=== PATIENT | female | born 1995 | race Caucasian/White ===

== ENCOUNTER 2016-10-09 14:22 | Emergency (ER) | payer MEDICAID ==
[2016-10-09] MEDS ORDERED: Sodium Chloride 0.9% 1,000 ML IV ONE ×2 (14:41→16:01)
[2016-10-09] MEDS ORDERED: Ondansetron 4 MG/2 ML SDV IV ONE (14:55)
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
[2016-10-09 15:17] LABS: CHLORIDE,CL 104 mmol/L (101-111); SODIUM,NA 138 mmol/L (135-145)
[2016-10-09 16:23] VITALS: BP 136/85
[2016-10-09] MEDS ORDERED: LORazepam 2 MG/ML Syringe IVPUSH ONE ×2 (16:58→17:21)
== END 2016-10-09 18:02 | disposition home or self-care (01) ==
LOC: DL.ED 14:22
DX: T50.901A Poisoning by unspecified drugs, medicaments and biological substances, accidental (unintentional), initial encounter (principal); R42 Dizziness and giddiness; F41.9 Anxiety disorder, unspecified; K21.9 Gastro-esophageal reflux disease without esophagitis; Z90.49 Acquired absence of other specified parts of digestive tract; Z88.8 Allergy status to other drugs, medicaments and biological substances; Z79.899 Other long term (current) drug therapy
CPT/HCPCS: 36415; 80053; 80305; 81001; 81025; 82150; 83605; 83690; 85025; 96361; 96374; 96375; 99284; G0480; J2060; J2405; J7030

== ENCOUNTER 2017-03-15 17:15 | Emergency (ER) | payer MEDICAID ==
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
[2017-03-15] MEDS ORDERED: Sodium Chloride 0.9% 10 ML Syringe FLUSH PRN (17:48)
[2017-03-15] MEDS ORDERED: Sodium Chloride 0.9% 1,000 ML IV ONE ×2 (17:49→19:51)
[2017-03-15 18:41] LABS: CHLORIDE,CL 102 mmol/L (101-111); SODIUM,NA 135 mmol/L (135-145)
[2017-03-15] MEDS ORDERED: methylPREDNISolone Sodium Succinate 125 MG/2 ML SDV IVPUSH ONE (19:53)
[2017-03-15] MEDS ORDERED: Albuterol/Ipratropium 3.0-0.5 MG/3 ML Neb Soln NEB ONE (19:53)
[2017-03-15] MEDS ORDERED: Ketorolac 30 MG/ML SDV IVPUSH ONE (20:13)
[2017-03-15] MEDS ORDERED: cefTRIAXone 1 GM Vial IVPUSH ONE (20:13)
[2017-03-15 20:24] VITALS: BP 119/66
[2017-03-15] MEDS ORDERED: Morphine 2 MG/ML Syringe IVPUSH ONE (20:56)
--- NOTE | 2017-03-25 18:37 | EKG ---
03/15/2017 - KRISH SHREMAN - This 12-lead EKG shows sinus tachycardia with a ventricular rate of 115. Normal axis and intervals. No acute ST-segment or T-wave changes. [facility] /[id number]
== END 2017-03-15 22:03 ==
LOC: DL.ED 17:15
DX: I40.0 Infective myocarditis (principal); F41.9 Anxiety disorder, unspecified; Z79.899 Other long term (current) drug therapy; Z88.8 Allergy status to other drugs, medicaments and biological substances; Z91.048 Other nonmedicinal substance allergy status
CPT/HCPCS: 36415; 71250; 80053; 81001; 81025; 82550; 82553; 83605; 84484; 85025; 85651; 86308; 87804; 93005; 94640; 96361; 96374; 96375; 99285; J0696; J1885; J2270; J2930; J7030; J7050

== ENCOUNTER 2017-05-04 20:24 | Emergency (ER) | payer MEDICAID ==
[2017-05-04 20:50] VITALS: BP 125/67
[2017-05-04 21:27] LABS: ANION GAP 12.3; CHLORIDE,CL 104 mmol/L (101-111); SODIUM,NA 137 mmol/L (135-145)
[2017-05-04] MEDS ORDERED: Famotidine 20 MG/2 ML SDV IVPUSH ONE (21:57)
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
--- NOTE | 2017-05-08 19:02 | EKG ---
05/04/2017 - KRISH SHERMAN I reviewed the EKG and agree with the machine's reading. [facility] /[id number]
== END 2017-05-04 23:23 | disposition home or self-care (01) ==
LOC: DL.ED 20:24
DX: R07.89 Other chest pain (principal); Z88.8 Allergy status to other drugs, medicaments and biological substances; Z79.899 Other long term (current) drug therapy
CPT/HCPCS: 36415; 71045; 80053; 82553; 83605; 84484; 85025; 85379; 86140; 93005; 96374; 99285; S0028

== ENCOUNTER 2017-06-27 20:42 | Emergency (ER) | payer MEDICAID ==
[2017-06-27] MEDS ORDERED: LORazepam 0.5 MG Tab PO ONE (20:59)
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
[2017-06-27 21:40] LABS: CHLORIDE,CL 106 mmol/L (101-111); SODIUM,NA 138 mmol/L (135-145)
[2017-06-27] MEDS ORDERED: Ketorolac 30 MG/ML SDV IVPUSH ONE (22:43)
[2017-06-27] MEDS ORDERED: Ketorolac 30 MG/ML SDV IM ONE (22:58)
[2017-06-27 23:27] VITALS: BP 126/64
== END 2017-06-27 23:21 | disposition home or self-care (01) ==
LOC: DL.ED 20:42
DX: R07.89 Other chest pain (principal); Z88.8 Allergy status to other drugs, medicaments and biological substances; Z91.048 Other nonmedicinal substance allergy status; Z79.899 Other long term (current) drug therapy; Z79.82 Long term (current) use of aspirin
CPT/HCPCS: 36415; 80053; 80305; 81001; 81025; 82550; 82553; 84484; 85025; 86140; 93005; 96372; 99284; A9270; J1885

== ENCOUNTER 2017-08-03 17:07 | Emergency (ER) | payer MEDICAID ==
[2017-08-03] MEDS ORDERED: LORazepam 0.5 MG Tab PO ONE (18:17)
[2017-08-03 18:25] LABS: CHLORIDE,CL 106 mmol/L (101-111); SODIUM,NA 137 mmol/L (135-145)
[2017-08-03 18:47] VITALS: BP 119/66
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
--- NOTE | 2017-08-07 07:19 | EKG ---
08/03/2017- KRISH SHERMAN - FINDINGS: Normal sinus rhythm with heart rate of 87, DC interval of 132. No significant ST elevation or ST depression noted on this 12-lead EKG except for nonspecific ST-T wave changes noted on lead V1 with a T-wave inversion. [facility] /[id number]
== END 2017-08-03 19:12 | disposition home or self-care (01) ==
LOC: DL.ED 17:07
DX: F41.9 Anxiety disorder, unspecified (principal); R07.89 Other chest pain; Z88.8 Allergy status to other drugs, medicaments and biological substances; Z79.899 Other long term (current) drug therapy; Z79.82 Long term (current) use of aspirin
CPT/HCPCS: 36415; 71046; 80053; 80305; 81001; 81025; 84484; 85025; 85379; 86140; 93005; 99284; A9270

== ENCOUNTER 2017-08-04 21:50 | Emergency (ER) | payer MEDICAID ==
[2017-08-04] MEDS ORDERED: Sodium Chloride 0.9% 1,000 ML IV ONE (22:34)
[2017-08-04] MEDS ORDERED: LORazepam 2 MG/ML Syringe IVPUSH ONE (22:34)
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
[2017-08-04 22:49] LABS: CHLORIDE,CL 107 mmol/L (101-111); SODIUM,NA 137 mmol/L (135-145)
[2017-08-04] MEDS ORDERED: Ondansetron 4 MG/2 ML SDV IV ONE (23:17)
[2017-08-04] MEDS ORDERED: Ketorolac 30 MG/ML SDV IVPUSH ONE (23:19)
[2017-08-05 00:47] VITALS: BP 110/57
[2017-08-05] MEDS ORDERED: LORazepam 2 MG/ML Syringe IVPUSH ONE (00:47)
--- NOTE | 2017-08-06 12:54 | EKG ---
08/04/2017 - KRISH SHERMAN - FINDINGS: A 12-lead EKG shows normal sinus rhythm with heart rate of 86, no significant ST elevation or ST depression noted on this 12-lead EKG. [facility] /[id number]
== END 2017-08-05 01:04 | disposition home or self-care (01) ==
LOC: DL.ED 21:50
DX: R07.89 Other chest pain (principal); F41.9 Anxiety disorder, unspecified; Z88.8 Allergy status to other drugs, medicaments and biological substances; Z91.048 Other nonmedicinal substance allergy status; Z79.899 Other long term (current) drug therapy
CPT/HCPCS: 36415; 80053; 84484; 85025; 85379; 86140; 93005; 96361; 96374; 96375; 96376; 99285; J1885; J2060; J2405; J7030

== ENCOUNTER 2017-08-11 04:43 | Emergency (ER) | payer MEDICAID ==
[2017-08-11] MEDS ORDERED: Ondansetron 4 MG/2 ML SDV ONE (04:55)
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
[2017-08-11] MEDS ORDERED: Ondansetron 4 MG/2 ML SDV IV ONE (04:58)
[2017-08-11 05:22] LABS: CHLORIDE,CL 107 mmol/L (101-111); SODIUM,NA 137 mmol/L (135-145)
[2017-08-11 05:56] VITALS: BP 108/48
--- NOTE | 2017-08-13 07:41 | EKG ---
08/11/2017- KRISH SHERMAN - FINDINGS: EKG per my reading, shows sinus rhythm at the rate of 81. [facility] /[id number]
== END 2017-08-11 06:28 | disposition home or self-care (01) ==
LOC: DL.ED 04:43
DX: F43.0 Acute stress reaction (principal); Z88.8 Allergy status to other drugs, medicaments and biological substances; Z79.899 Other long term (current) drug therapy; Z79.82 Long term (current) use of aspirin
CPT/HCPCS: 36415; 80053; 84484; 85025; 93005; 99285; J2405

== ENCOUNTER 2017-08-19 21:32 | Emergency (ER) | payer MEDICAID ==
[2017-08-19] MEDS ORDERED: LORazepam 0.5 MG Tab PO ONE (21:33)
[2017-08-19 22:49] LABS: ANION GAP 13.8; CHLORIDE,CL 105 mmol/L (101-111); SODIUM,NA 139 mmol/L (135-145)
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
[2017-08-20] MEDS ORDERED: LORazepam 0.5 MG Tab ONE (00:23)
[2017-08-20 00:31] VITALS: BP 110/69
--- NOTE | 2017-08-21 19:29 | EKG ---
08/19/2017 - KRISH SHERMAN - TIME: 9:46 p.m. FINDINGS: EKG shows a heart rate of 82 beats per minute. Normal sinus rhythm. [facility] /[id number]
== END 2017-08-20 00:28 | disposition home or self-care (01) ==
LOC: DL.ED 21:32
DX: R07.9 Chest pain, unspecified (principal); F41.9 Anxiety disorder, unspecified; Z91.048 Other nonmedicinal substance allergy status; Z79.899 Other long term (current) drug therapy
CPT/HCPCS: 36415; 80053; 80305; 81001; 82150; 84484; 84703; 85025; 86140; 99283; A9270

== ENCOUNTER 2017-08-20 22:49 | Emergency (ER) | payer MEDICAID | END 2017-08-20 23:08 | disposition left against medical advice (07) | LOC: DL.ED 22:49 | DX: R07.9 Chest pain, unspecified (principal); F41.9 Anxiety disorder, unspecified; Z91.048 Other nonmedicinal substance allergy status; Z79.899 Other long term (current) drug therapy; Z53.21 Procedure and treatment not carried out due to patient leaving prior to being seen by health care provider | CPT/HCPCS: 36415; 80053; 80305; 81001; 82150; 84484; 84703; 85025; 86140; 99283; A9270 ==

== ENCOUNTER 2017-10-03 03:43 | Emergency (ER) | payer MEDICAID ==
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
[2017-10-03 04:13] VITALS: BP 112/76
== END 2017-10-03 04:59 | disposition home or self-care (01) ==
LOC: DL.ED 03:43
DX: S60.221A Contusion of right hand, initial encounter (principal); S60.211A Contusion of right wrist, initial encounter; Z88.8 Allergy status to other drugs, medicaments and biological substances; Z79.82 Long term (current) use of aspirin; Z79.899 Other long term (current) drug therapy; W22.8XXA Striking against or struck by other objects, initial encounter
CPT/HCPCS: 73090-RT; 73130-RT; 99283

== ENCOUNTER 2018-05-24 15:33 | Emergency (ER) | payer MEDICAID ==
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
[2018-05-24 16:31] VITALS: BP 119/77
== END 2018-05-24 16:18 | disposition home or self-care (01) ==
LOC: DL.ED 15:33
DX: S39.92XA Unspecified injury of lower back, initial encounter (principal); F41.9 Anxiety disorder, unspecified; Z79.82 Long term (current) use of aspirin; Z79.899 Other long term (current) drug therapy; W01.0XXA Fall on same level from slipping, tripping and stumbling without subsequent striking against object, initial encounter
CPT/HCPCS: 72100; 72220; 99283-25

== ENCOUNTER 2018-05-25 00:55 | Emergency (ER) | payer MEDICAID ==
[2018-05-25] MEDS ORDERED: Ketorolac 30 MG/ML SDV ONE (04:21)
== END 2018-05-25 04:46 | disposition home or self-care (01) ==
LOC: DL.ED 00:55
DX: S39.92XA Unspecified injury of lower back, initial encounter (principal); W19.XXXA Unspecified fall, initial encounter
CPT/HCPCS: 96372; 99283

== ENCOUNTER 2018-09-11 09:03 | Day surgery (SDC) | payer MEDICAID ==
[~2018-09-11 09:03] MED LIST: Lactated Ringers 1,000 ML IV SCH; Sodium Chloride 0.9% 10 ML Syringe FLUSH PRN; ceFAZolin 2 GM in Premix Bag 1 BAG IV ONE
[2018-09-11] MEDS ORDERED: Ketorolac 30 MG/ML SDV IVPUSH ONE (09:04)
[2018-09-11] MEDS ORDERED: fentaNYL 100 MCG/2 ML SDV IV ONE (09:04)
[2018-09-11] MEDS ORDERED: Midazolam 1 MG/ML 2 ML SDV IV ONE (09:04)
[2018-09-11] MEDS ORDERED: Dexamethasone 4 MG/ML SDV IV ONE (09:04)
[2018-09-11] MEDS ORDERED: Propofol 200 MG/20 ML SDV IV ONE (09:04)
[2018-09-11] MEDS ORDERED: Ondansetron 4 MG/2 ML SDV IV ONE (09:04)
[2018-09-11] MEDS ORDERED: Albuterol/Ipratropium 3.0-0.5 MG/3 ML Neb Soln NEB ONE (11:43)
[2018-09-11] MEDS ORDERED: Lidocaine 1% 30 ML SDV ONE (12:08)
[2018-09-11] MEDS ORDERED: Bupivacaine 0.5% 30 ML SDV ONE (12:08)
[2018-09-11] MEDS ORDERED: Lidocaine 1% 30 ML SDV INJECT ONE (13:10)
[2018-09-11] MEDS ORDERED: Bupivacaine 0.5% 30 ML SDV INJECT ONE (13:10)
--- NOTE | 2018-09-11 15:44 | PCM.OPNOTE ---
- General Post-Op/Procedure Note Date of Surgery/Procedure: 09/11/18 Operative Procedure(s): left foot 1st metatarsal osteotomy, accessory navicular excision with detachment and reattachment of PT tendon Pre Op Diagnosis: left foot 1st MTPJ pain with bunion, painful accessory navicular bone Post-Op Diagnosis: liliam Anesthesia Technique: General LMA, Local Primary Surgeon: Kacie Coulter Anesthesia Provider: Jhonatan Blanco EBL in mLs: 5 Complications: none Condition: Good Free Text/Narrative:: Pt tolerated procedure well and was transported to recovery with vascular status intact to left foot. 5.0 daisy bone anchor placed in navicular. Well padded L&U splint applied with foot in inversion.
[2018-09-11] MEDS ORDERED: oxyCODONE 5 MG Tab PO PRN (16:00)
[2018-09-11 18:51] VITALS: BP 109/67
--- NOTE | 2018-09-12 17:22 | OR ---
DATE: 09/11/2018 PREOPERATIVE DIAGNOSES: 1. Left foot painful bunion/hallux abductovalgus with joint inflammation. 2. Left foot painful accessory navicular bone. POSTOPERATIVE DIAGNOSES: 1. Left foot painful bunion/hallux abductovalgus with joint inflammation. 2. Left foot painful accessory navicular bone. PROCEDURE PERFORMED: 1. Left foot first metatarsal osteotomy/bunionectomy. 2. Left foot accessory navicular excision with detachment and reattachment of the posterior tibial tendon. ANESTHESIA: General LMA with local block of 20 mL of 1:1 mixture of 1% lidocaine plain and 0.5% Marcaine plain. TOURNIQUET TIME: 112 minutes, pneumatic ankle tourniquet. ESTIMATED BLOOD LOSS: Minimal. SPECIMENS: None. COMPLICATIONS: None. INDICATIONS: Fransico is a 22-year-old female who presents for left foot pain. She has history of a Lapidus bunionectomy and Vignesh performed by a different bobbin dumper in 2012. I removed her hardware after that. She states that she is having a lot of pain to the big toe joint, it looks like her bunion is growing back to that area and it is causing a lot of pain. She states that that toe will get stuck downwards and cause her to trip, this causes a lot of issues and it gets very painful when it gets stuck. This has been going on for over a year now. She also gets pain in the medial midfoot where there is a bony prominence, this does shoot up her leg. She states that it feels like her foot is loose and needs to be tightened. 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 X-rays of the left foot reveal fusion of the first metatarsocuneiform joint and the second metatarsal base. Intermetatarsal angle of approximately 10 degrees with a tibial sesamoid position of 5, hallux abductus angle of 30 degrees. Large accessory navicular bone present. Some mild spurring around the first MTPJ. The patient voiced good understanding of the proposed procedure and possible complications, and elects to have surgery at this time. DESCRIPTION OF PROCEDURE: The patient was taken to the operating room, lying in the supine position. After adequate anesthesia induction as described above, the left foot was prepped and draped in a usual sterile fashion. A pneumatic ankle tourniquet was inflated to 225 mmHg. Attention was then directed to the dorsal aspect of the first metatarsophalangeal joint where an approximately 5 cm linear incision was made. Sharp and blunt dissections were performed down to the level of the joint capsule with care to gently retract all neurovascular bundles. Blunt dissection was performed down to the level of the first interspace to the sesamoid. The adductor tendon was released from the sesamoid. An inverted capsulotomy was made at the first metatarsophalangeal joint and the capsule was reflected to expose the distal first metatarsal. The joint was inspected at this time and it was noted to be fairly healthy in appearance, there was only 1 small defect at the medial aspect and this was drilled with a 0.054 K-wire. The rest of the cartilage appeared healthy, however, it was deviated laterally. There was some hypertrophy of the medial eminence as well, which was removed with a sagittal saw. An osteotomy was then made with the plantar osteotomy parallel to the weightbearing surface, starting at a 0.1 cm proximal to the articular cartilage of the metatarsal head. A horizontal osteotomy was then made perpendicular to the plantar osteotomy and then a third osteotomy was made to remove an approximately 2 mm wedge of bone with the base medial and apex lateral. The capital fragment was then shifted laterally approximately 4 mm and impacted on the first metatarsal shaft to bring that joint surface in a rectus straight alignment. A K-wire from the 3.0 Brien cannulated screw set was placed as temporary fixation. Fluoroscopy was used to verify proper positioning of the fixation as well as good positioning of the joint surface. A 3.0 cannulated [place] screw was placed and it was not in the joint or in the metatarsal head sticking out, this was inspected and it looked to be a good length. The osteotomy site was noted to be stable with varus, valgus, and axial forces applied. A capsulorrhaphy was performed at the medial aspect and the area was then irrigated with copious amounts of sterile saline. Deep closure was completed with 3-0 Vicryl and skin closure was completed with 4- 0 nylon. The hallux was noted to be in a straight rectus alignment with fluid range of motion, there was no clicking and catching, and I was able to put it in full range of motion without any issues. Our attention was then directed to the medial midfoot where the accessory navicular bone was marked out. A linear incision was made overlying the prominent navicular approximately 5 cm in length. Sharp and blunt dissections were performed down to the level of the periosteum of the navicular bone. A capsulotomy was made and the accessory navicular was identified, and the posterior tibial tendon insertion site at this area was freed from the accessory navicular. A sagittal saw was used to resect the prominent portion of the enlarged navicular. A bone rasp was used to smooth all rough bony edges. Fluoroscopy was used to verify adequate resection of the navicular. A 5.0 [place] bone anchor was then placed into the medial aspect of the navicular. The area was irrigated with copious amounts of sterile saline and the posterior tibial tendon was then reattached to the navicular in this area with the foot in inversion as to tighten the tendon. Deep closure was completed with 3-0 Vicryl and skin closure was completed with 4-0 nylon. The area was dressed with Xeroform to the incision site, fluffs, Webril, and a well- padded L and U splint with the foot in slight inversion. The patient tolerated the procedure and anesthesia well, and left the operating room for recovery with vital signs stable and in good condition with vascular status intact to the left foot. The patient was then discharged home when she met all hospital discharge requirements. [facility] /[id number]
== END 2018-09-11 17:28 ==
LOC: DL.SDS 09:03
PROVIDERS: ATTEND Podiatrist
DX: M21.612 Bunion of left foot (principal); M20.12 Hallux valgus (acquired), left foot; M19.079 Primary osteoarthritis, unspecified ankle and foot; I07.1 Rheumatic tricuspid insufficiency; K21.9 Gastro-esophageal reflux disease without esophagitis; K58.9 Irritable bowel syndrome, unspecified; F41.9 Anxiety disorder, unspecified; F41.1 Generalized anxiety disorder; J90 Pleural effusion, not elsewhere classified; M79.7 Fibromyalgia; Z98.1 Arthrodesis status; Z88.3 Allergy status to other anti-infective agents; Z91.048 Other nonmedicinal substance allergy status; Z79.899 Other long term (current) drug therapy
CPT/HCPCS: 81025; 94640; A4217; C1713; J0690; J1100; J1885; J2001; J2250; J2405; J2704; J3010; J3490; J7120; J7620-GY

== ENCOUNTER 2018-11-27 05:33 | Day surgery (SDC) | payer MEDICAID ==
[2018-11-27] MEDS ORDERED: Midazolam 1 MG/ML 2 ML SDV IV ONE ×7 (05:34→06:32)
[2018-11-27] MEDS ORDERED: fentaNYL 100 MCG/2 ML SDV IV ONE ×6 (05:34→06:36)
[2018-11-27] MEDS ORDERED: fentaNYL 100 MCG/2 ML SDV ONE (06:14)
[2018-11-27] MEDS ORDERED: Midazolam 1 MG/ML 2 ML SDV ONE (06:14)
--- NOTE | 2018-11-27 07:22 | OR ---
DATE: 11/27/2018 PROCEDURE: Total colonoscopy. INSTRUMENT USED: PCF-H190DL Olympus video colonoscope. PREMEDICATIONS: Fentanyl 200 mcg intravenous, Versed 4 mg intravenous. The procedure was done under pulse oximetry, BP recording, and desk monitor. INDICATION: The patient with persistent lower abdominal pain and rectal bleeding, unexplained. Colonoscopic examination is done for detection of any polypoid lesions and removal, endoscopic hemostasis therapy if needed. DESCRIPTION OF PROCEDURE: Initial rectal exam was unremarkable. Rigid anoscopy was normal. The colonoscope was passed with ease up to the ileocecal area. Photographs were taken of the normal-appearing cecum identified by double-bulged ileocecal folds. No bleeding was noted from any of the visualized areas at the commencement of the examination. The bowel preparation was found to be adequate, [place] scale 2 in all the regions. No stricture. No vascular ectasia. No large isolated ulcerations seen. No evidence of diffuse inflammatory bowel disease in the form of friability, contact bleeding, or ulcerations. No polyp or tumor mass identified. Probing the proximal sides of folds and flexures, using adequate distention and clearing of the stool material, withdrawal of the scope was made, cecum to rectum time over 6 minutes. No bleeding was noted from any of the visualized areas at the completion of examination. IMPRESSION: Normal study. The patient tolerated the procedure well. [facility] /[id number]
[2018-11-27] MEDS ORDERED: Sodium Chloride 0.9% 10 ML Syringe FLUSH PRN (07:46)
[2018-11-27] MEDS ORDERED: Dextrose 5%-0.45% NaCl 1,000 ML IV SCH (08:00)
[2018-11-27 09:33] VITALS: BP 105/60
== END 2018-11-27 08:50 | disposition home or self-care (01) ==
LOC: DL.ENDO 05:33
PROVIDERS: ATTEND Internal Medicine Gastroenterology
DX: R10.30 Lower abdominal pain, unspecified (principal); K62.5 Hemorrhage of anus and rectum; F41.1 Generalized anxiety disorder; F32.9 Major depressive disorder, single episode, unspecified; K58.9 Irritable bowel syndrome, unspecified
CPT/HCPCS: 45378; J2250; J3010; J7042; G0121

== ENCOUNTER 2019-02-04 01:31 | Emergency (ER) | payer MEDICAID ==
--- NOTE | 2019-02-04 02:05 | EDM.PDOC ---
ED HPI GENERAL MEDICAL PROBLEM - General Chief Complaint: Lower Extremity Injury/Pain Stated Complaint: TRIPPED AND HURT TOE Time Seen by Provider: 02/04/19 01:48 Source of Information: Reports: Patient History Limitations: Reports: No Limitations - History of Present Illness INITIAL COMMENTS - FREE TEXT/NARRATIVE: This 23 yo female patient reports to the ED with left 1st and 2nd toe pain. The patient reports she tripped at about 0030 this morning and hit her toe. The patient reports she heard a "pop" during the incident. The patient reports increased pain and decreased mobility since the incident. The patient reports she took Tylenol, ibuprofen and 1/2 of an Oxycodone prior to coming to the ED with no symptom relief. The patient reports she has had multiple surgeries on the left great toe in the past and has had chronic pain in her left foot. 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: Reports: Acetaminophen, NSAIDS, Other Medication(s) (1/2 of a 10 mg Oxycodone) Left Foot Pain Score (Numeric/FACES): 8 - Related Data Allergies Allergy/AdvReac Type Severity Reaction Status Date / Time chlorhexidine Allergy Rash Verified 02/04/19 01:39 TAPE Allergy Unknown Rash Uncoded 02/04/19 01:39 Home Meds: Home Meds Escitalopram [Lexapro] 10 mg PO DAILY 10/03/17 [History] Acetaminophen 500 - 1,000 mg PO Q6H PRN 09/09/18 [History] Clindamycin Phosphate [Cleocin T] 1 applic TOP ASDIRECTED 09/09/18 [History] LORazepam 0.5 mg PO Q6H PRN 09/09/18 [History] Ondansetron [Zofran ODT] 4 mg PO DAILY 09/09/18 [History] Polyvinyl Alcohol [Artificial Tears] 1 drop EYEBOTH QID PRN 09/09/18 [History] Tretinoin [Retin-A] 1 applic TOP ASDIRECTED PRN 09/09/18 [History] lamoTRIgine [Lamotrigine] 100 mg PO DAILY 09/09/18 [History] Biotin 1 mg PO DAILY PRN 09/10/18 [History] Norethindrone-E.estradiol-Iron [Junel Fe 1 MG-20 MCG] 1 each PO DAILY 11/21/18 [ History] oxyCODONE ER [OxyCONTIN] 10 mg PO BID 11/25/18 [History] Cholecalciferol (Vitamin D3) [Vitamin D] 50,000 unit PO ASDIRECTED 02/04/19 [ History] Magnesium Citrate 100 mg PO 02/04/19 [History] Past Medical History HEENT History: Reports: Impaired Vision Other HEENT History: wear glasses Cardiovascular History: Reports: Other (See Below) Other Cardiovascular History: SYNCOPE ETIOLOGY UNKNOWN, myocarditis 2016, fatty spot on Atrium, leaky heart valves Respiratory History: Reports: Asthma, Bronchitis, Recurrent Gastrointestinal History: Reports: Chronic Constipation, GERD, Irritable Bowel Syndrome Other Gastrointestinal History: LACTOSE INTOLERANCE Genitourinary History: Reports: Urinary Incontinence SAP MOBILITY ARCHITECT History: Reports: Endometriosis Other SAP MOBILITY ARCHITECT History: LMP ended This past Saturday Musculoskeletal History: Reports: Back Pain, Chronic, Fibromyalgia Other Musculoskeletal History: BUNION LEFT FOOT; TIETZE'S DISEASE; DDD THORACOLUMBAR; MYOFASCIAL PAIN; CHRONIC BACK PAIN; MUSCULE SPASM OF THE BACK; NECK PAIN HX OF TORTICOLLIS; 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 Thoracic outlet syndrom; had first ribs removed. CHRONIC FATIGUE SYNDROME Psychiatric History: Reports: Anxiety, Panic Attack Endocrine/Metabolic History: Reports: None Hematologic History: Reports: B12 Deficiency, Iron Deficiency Immunologic History: Reports: None Oncologic (Cancer) History: Reports: None Dermatologic History: Reports: Cellulitis - Infectious Disease History Infectious Disease History: Reports: None - Past Surgical History Head Surgeries/Procedures: Reports: None HEENT Surgical History: Reports: Oral Surgery Other HEENT Surgeries/Procedures: wisdom teeth removed in 2014 Cardiovascular Surgical History: Reports: Other (See Below) Other Cardiovascular Surgeries/Procedures: pulmonary function test. echocardiogram Respiratory Surgical History: Reports: None GI Surgical History: Reports: Cholecystectomy, EGD Female Surgical History: Reports: Endometrial Ablation, Other (See Below) Other Female Surgeries/Procedures: Endometriosis ablation Jul 30 2018 Other Neurological Surgeries/Procedures: INJECTION TO BACK Musculoskeletal Surgical History: Reports: Shoulder Surgery, Other (See Below) Other Musculoskeletal Surgeries/Procedures:: knee and foot surgery, 1 rib removed from right and left side to increase blood flow. Oncologic Surgical History: Reports: None Social & Family History - Family History Family Medical History: Noncontributory HEENT: - Tobacco Use Smoking Status *Q: Never Smoker - Caffeine Use Caffeine Use: Reports: Coffee Other Caffeine Use: 1 cups a week Caffeine Use Comment: Intermittent coffee, not even every day. - Recreational Drug Use Recreational Drug Use: Yes Other Recreational Drug Type: Intermittent marijuana use. - Living Situation & Occupation Living situation: Reports: with Family Review of Systems - Review of Systems Review Of Systems: Comprehensive ROS is negative, except as noted in HPI. ED EXAM, GENERAL - Physical Exam Exam: See Below Exam Limited By: No Limitations General Appearance: Alert, WD/WN, Moderate Distress Eye Exam: Bilateral Eye: EOMI, Normal Inspection, PERRL Ears: Normal External Exam, Normal Canal, Hearing Grossly Normal, Normal TMs Nose: Normal Inspection, Normal Mucosa, No Blood Throat/Mouth: Normal Inspection, Normal Lips, Normal Teeth, Normal Gums, Normal Oropharynx, Normal Voice, No Airway Compromise Head: Atraumatic, Normocephalic Neck: Normal Inspection, Supple, Non-Tender, Full Range of Motion Respiratory/Chest: No Respiratory Distress, Lungs Clear, Normal Breath Sounds, No Accessory Muscle Use, Chest Non-Tender Cardiovascular: Normal Peripheral Pulses, Regular Rate, Rhythm, No Edema, No Gallop, No JVD, No Murmur, No Rub (Female) Exam: Deferred Rectal (Female) Exam: Deferred Extremities: Leg Pain (left foot and toe pain. The pain is reported over the 1st and 2nd toes at the MCP joint. The patient has a surgical scar to the area. The patient reports she has a screw in the area from previous surgeries. ) Neurological: Alert, Oriented, Abnormal Gait (due to pain in her left foot) Psychiatric: Normal Affect, Normal Mood Skin Exam: Warm, Dry, Intact, Normal Color, No Rash Lymphatic: No Adenopathy Course - Vital Signs Last Recorded V/S: Last Vital Signs Temp 36.6 C 02/04/19 01:39 Pulse 108 H 02/04/19 01:39 Resp 22 H 02/04/19 01:39 BP 115/63 02/04/19 01:39 Pulse Ox 100 02/04/19 01:39 - Orders/Labs/Meds Orders: Active Orders 24 hr Category Date Time Status Foot Comp Min 3V Lt [CR] Urgent Exams 02/04/19 01:53 Taken Departure - Departure Time of Disposition: 03:26 Disposition: Home, Self-Care 01 Condition: Fair Clinical Impression: Foot contusion Qualifiers: Encounter type: initial encounter Laterality: left Qualified Code(s): S90.32XA - Contusion of left foot, initial encounter - Discharge Information Instructions: Foot Contusion, [id number] Forms: ED Department Discharge Care Plan Goals: The patient was advised of the examination and x-ray results during the visit. An LAWANDA wrap was applied to the patient's left foot for compression during the visit in the ED. The patient was encouraged to rest, ice and elevate the extremity. If the patient has any additional symptoms or concerns, the patient should either return to the emergency department or visit the emergency department. - My Orders Last 24 Hours: My Active Orders 02/04/19 01:53 Foot Comp Min 3V Lt [CR] Urgent - Assessment/Plan Last 24 Hours: My Active Orders 02/04/19 01:53 Foot Comp Min 3V Lt [CR] Urgent
[2019-02-04 03:45] VITALS: BP 106/63; PULSE 84
== END 2019-02-04 03:38 | disposition home or self-care (01) ==
LOC: DL.ED 01:31
DX: S90.112A Contusion of left great toe without damage to nail, initial encounter (principal); S90.122A Contusion of left lesser toe(s) without damage to nail, initial encounter; M79.675 Pain in left toe(s); J45.909 Unspecified asthma, uncomplicated; K21.9 Gastro-esophageal reflux disease without esophagitis; F41.9 Anxiety disorder, unspecified; Z79.899 Other long term (current) drug therapy; W22.8XXA Striking against or struck by other objects, initial encounter
CPT/HCPCS: 73630-LT; 99283-25

== ENCOUNTER 2019-03-05 09:02 | Day surgery (SDC) | payer MEDICAID ==
[2019-03-05] MEDS ORDERED: Ketorolac 30 MG/ML SDV IVPUSH ONE (09:03)
[2019-03-05] MEDS ORDERED: Midazolam 1 MG/ML 2 ML SDV IV ONE (09:03)
[2019-03-05] MEDS ORDERED: Ondansetron 4 MG/2 ML SDV IV ONE (09:03)
[2019-03-05] MEDS ORDERED: Propofol 200 MG/20 ML SDV IV ONE (09:03)
[2019-03-05] MEDS ORDERED: Bupivacaine 0.5% 30 ML SDV INJECT ONE (09:03)
[2019-03-05] MEDS ORDERED: fentaNYL 100 MCG/2 ML SDV IV ONE (09:03)
[2019-03-05] MEDS ORDERED: Dexamethasone 4 MG/ML SDV IV ONE (09:03)
[2019-03-05] MEDS ORDERED: Lidocaine 1% 30 ML SDV INJECT ONE (09:03)
[2019-03-05] MEDS ORDERED: Lidocaine 1% 30 ML SDV ONE (10:11)
[2019-03-05] MEDS ORDERED: Bupivacaine 0.5% 30 ML SDV ONE (10:11)
[2019-03-05] MEDS ORDERED: Propofol 200 MG/20 ML SDV ONE (12:20)
[2019-03-05] MEDS ORDERED: oxyCODONE 5 MG Tab PO PRN (13:06)
--- NOTE | 2019-03-05 13:09 | PCM.OPNOTE ---
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 Brien plate and 2.7 locking screws placed. Well padded L&U splint applied with foot in neutral.
[2019-03-05 16:17] VITALS: BP 110/63; PULSE 62
--- NOTE | 2019-03-06 17:04 | OR ---
DATE: 03/05/2019 PREOPERATIVE DIAGNOSIS: Left foot hallux limitus with first metatarsophalangeal joint arthritis. POSTOPERATIVE DIAGNOSIS: Left foot hallux limitus with first metatarsophalangeal joint arthritis. PROCEDURE PERFORMED: left foot first metatarsophalangeal joint arthrodesis. ANESTHESIA: Local MAC with preoperative local block of 10 mL 1:1 mixture of 1% lidocaine plain and 0.5% Marcaine plain. TOURNIQUET TIME: 96 minutes, pneumatic ankle tourniquet. ESTIMATED BLOOD LOSS: Minimal. SPECIMEN: None. COMPLICATIONS: None. INDICATIONS: Fransico is a 23-year-old female who presents with continued left great toe joint pain. She is status post procedure of the first toe joint back in August, I also did a Kidner procedure on her at that time. Her ankle has healed well from the Kidner procedure, however, that the great toe joint has limited motion and is continuing to cause her pain. She did go to Physical Therapy and was told that she probably will not get anymore motion back to that. It does not want to hit the floor when she stands and is causing her to walk differently causing back and knee pain. 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 X-rays of the left foot revealed no signs of fracture, no bony block at the plantar aspect of the joint, there are some arthritic changes. The patient voiced good understanding of proposed procedure and possible complications, elects to have surgery at this time. DESCRIPTION OF PROCEDURE: The patient was taken to the operating room lying in supine position. After adequate anesthesia induction as described above, the left foot was prepped and draped in the usual sterile fashion. A pneumatic ankle tourniquet was inflated to 225 mmHg. Attention was then directed to the left foot overlying the first metatarsophalangeal joint where an approximately 5 cm linear incision was made over the joint. Sharp and blunt dissection was made down to the level of the joint capsule. There was noted to be significant amount of scar tissue adhering down that dorsal joint. The first metatarsophalangeal joint was visualized and freed up, being careful to retract all neurovascular structures. The first metatarsal was freed and there was noted to be quite a bit of arthritis in that first MTPJ with denuded cartilage. A curette was used to remove all of the cartilage from the first metatarsal head as well as the base of the proximal phalanx. A 0.062-inch K-wire was used to fenestrate the subchondral bone of both areas of the joint. The great toe was placed onto the head of the first metatarsal in a good rectus alignment with approximately 15 to 20 degree angle. A 0.062-inch K-wire was used to hold the toe in this alignment for temporary fixation. Fluoroscopy was used to verify proper angle of the fixation as well as compression and position of the great toe. A plate from the [place] screw set was then placed over the arthrodesis site and fluoroscopy was again used to verify proper position of the plate. 2.7 locking screws were then placed into the plate to hold the fusion together and the temporary fixation was removed. It was noted to be very stable and fluoroscopy was again used to verify proper positioning of the great toe as well as proper placement of the plate and screws. The area was then irrigated with copious amounts of sterile saline. Fluoroscopy was used and I did simulate weightbearing and she had good position of the great toe and was able to hit the footboard. Deep closure was completed with 3-0 Vicryl and skin closure was completed with 4-0 nylon. The area was dressed with Xeroform to the incision site, fluffs, Webril, and a well-padded L and U splint with the foot in neutral position. The patient tolerated procedure and anesthesia well and left the operating room for recovery with vital signs stable and in good condition with vascular status intact to the left foot as noted by immediate hyperemia upon deflation of the ankle tourniquet. The patient was then discharged home when she met hospital discharge requirements. [facility] /[id number]
== END 2019-03-05 14:30 | disposition home or self-care (01) ==
LOC: DL.SDS 09:02
PROVIDERS: ATTEND Podiatrist
DX: M20.5X2 Other deformities of toe(s) (acquired), left foot (principal); M19.072 Primary osteoarthritis, left ankle and foot; J45.20 Mild intermittent asthma, uncomplicated; K21.9 Gastro-esophageal reflux disease without esophagitis; F41.1 Generalized anxiety disorder; K58.9 Irritable bowel syndrome, unspecified; Z88.3 Allergy status to other anti-infective agents; Z91.048 Other nonmedicinal substance allergy status; Z98.890 Other specified postprocedural states; Z79.899 Other long term (current) drug therapy
CPT/HCPCS: 28750; 81025; C1713; C1776; J0690; J1100; J1885; J2001; J2250; J2405; J2704; J3010; J3490; J7120

== ENCOUNTER 2019-06-03 15:59 | Emergency (ER) | payer MEDICAID ==
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
[2019-06-03 16:49] VITALS: BP 145/80; PULSE 99
[2019-06-03] MEDS ORDERED: Albuterol 6.7 GM Inhaler INH ONE (17:00)
[2019-06-03 17:09] LABS: ANION GAP 14.7 mEq/L (7-13); CHLORIDE,CL 103 mmol/L (98-107); SODIUM,NA 140 mmol/L (136-145)
== END 2019-06-03 17:40 | disposition home or self-care (01) ==
LOC: DL.ED 15:59
DX: J40 Bronchitis, not specified as acute or chronic (principal); K21.9 Gastro-esophageal reflux disease without esophagitis; F41.9 Anxiety disorder, unspecified; Z88.8 Allergy status to other drugs, medicaments and biological substances; Z91.048 Other nonmedicinal substance allergy status; Z79.899 Other long term (current) drug therapy
CPT/HCPCS: 36415; 80053; 85025; 87804; 99283; A9270

== ENCOUNTER 2020-01-29 00:17 | Emergency (ER) | payer MEDICAID ==
[2020-01-29 00:36] VITALS: BP 129/75; PULSE 82
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
--- NOTE | 2020-01-29 01:23 | CR ---
PROCEDURE INFORMATION: Exam: XR Left Foot Complete Exam date and time: 01/29/2020 12:47 AM Age: 24 years old Clinical indication: Pain; Foot; Left; Additional info: Left toe pain TECHNIQUE: Imaging protocol: XR Left foot. Views: 3 or more views. COMPARISON: CR Foot Comp Min 3V Lt 02/04/2019 2:16 AM FINDINGS: Bones/joints: Status post fixation of the 1st metatarsophalangeal joint with a sideplate and screw. There has been repair of the prominent hallux valgus deformity. No acute fracture or dislocation. Soft tissues: Normal. IMPRESSION: 1. Status post fixation of the 1st metatarsophalangeal joint with a sideplate and screw. There has been repair of the prominent hallux valgus deformity. 2. No acute fracture or dislocation
== END 2020-01-29 01:36 | disposition home or self-care (01) ==
LOC: DL.ED 00:17
DX: S96.912A Strain of unspecified muscle and tendon at ankle and foot level, left foot, initial encounter (principal); F41.9 Anxiety disorder, unspecified; J45.909 Unspecified asthma, uncomplicated; Z91.09 Other allergy status, other than to drugs and biological substances; Z90.49 Acquired absence of other specified parts of digestive tract; Z79.899 Other long term (current) drug therapy; W22.8XXA Striking against or struck by other objects, initial encounter
CPT/HCPCS: 73630-LT; 99283

== ENCOUNTER 2020-07-20 15:35 | Emergency (ER) | payer MEDICAID ==
[2020-07-20] MEDS ORDERED: Lidocaine 1% 30 ML SDV INJECT ONE (16:26)
[2020-07-20] MEDS ORDERED: Diphtheria,Pertussis(Acell),Tetanus Vaccine 0.5 ML Syringe IM ONE (16:27)
[2020-07-20 16:35] VITALS: BP 100/63; PULSE 77
[2020-07-20] MEDS ORDERED: Diphtheria,Pertussis(Acell),Tetanus Vaccine 0.5 ML Syringe ONE (17:04)
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
== END 2020-07-20 17:26 | disposition home or self-care (01) ==
LOC: DL.ED 15:35
DX: S91.312A Laceration without foreign body, left foot, initial encounter (principal); J45.909 Unspecified asthma, uncomplicated; Z23 Encounter for immunization; Z91.048 Other nonmedicinal substance allergy status; Z79.899 Other long term (current) drug therapy; W26.8XXA Contact with other sharp object(s), not elsewhere classified, initial encounter
CPT/HCPCS: 12002; 90471; 90715; 99282-25; 99283

== ENCOUNTER 2020-10-08 09:40 | Emergency (ER) | payer MEDICAID ==
[2020-10-08 10:00] VITALS: BP 141/85; PULSE 88
[2020-10-08] MEDS ORDERED: Morphine 2 MG/ML SYRINGE IVPUSH ONE ×3 (10:19→11:17)
--- NOTE | 2020-10-08 10:25 | EDM.PDOC ---
ED HPI GENERAL MEDICAL PROBLEM - General Chief Complaint: Lower Extremity Injury/Pain Stated Complaint: JOINT REPLACEMENT ON TOE YESTERDAY, SENT HER Time Seen by Provider: 10/08/20 10:00 Source of Information: Reports: Patient History Limitations: Reports: No Limitations - History of Present Illness INITIAL COMMENTS - FREE TEXT/NARRATIVE: This 24 yo female patient reports to the ED due to pain in her left great toe. The patient had joint replacement surgery yesterday, but has noticed increased pain over the night. The patient reports she did take her pain medication (Oxy codone) at 0800 this morning with some pain relief. The patient called her provider and was advised not to remove the dressing herself, but to come to the ED. The patient reports she feels like the dressing is too tight. The patient attempted to loosen the dressing, but was unable to loosen the dressing due to increased pain. Onset: Today Duration: Constant Location: Reports: Lower Extremity, Left Quality: Reports: Ache, Pressure, Throbbing Severity: Severe Improves with: Reports: None Worsens with: Reports: None Associated Symptoms: Reports: No Other Symptoms Treatments WEEKEND RECEPTIONIST: Reports: Other Medication(s) Left Feet Pain Score (Numeric/FACES): 10 - Related Data Allergies Allergy/AdvReac Type Severity Reaction Status Date / Time chlorhexidine Allergy Rash Verified 10/08/20 09:55 TAPE Allergy Unknown Rash Uncoded 10/08/20 09:55 Home Meds: Home Meds Escitalopram [Lexapro] 20 mg PO DAILY 10/03/17 [History] Acetaminophen 500 - 1,000 mg PO Q6H PRN 09/09/18 [History] Clindamycin Phosphate [Cleocin T] 1 applic TOP DAILY 09/09/18 [History] LORazepam 0.5 mg PO Q6H PRN 09/09/18 [History] Ondansetron [Zofran ODT] 4 mg PO DAILY PRN 09/09/18 [History] Polyvinyl Alcohol [Artificial Tears] 1 drop EYEBOTH QID PRN 09/09/18 [History] Tretinoin [Retin-A] 1 applic TOP DAILY PRN 09/09/18 [History] lamoTRIgine [Lamotrigine] 100 mg PO DAILY 09/09/18 [History] norethindrone-e.estradioL-iron [Junel Fe 1 MG-20 MCG] 1 each PO DAILY 11/21/18 [History] oxyCODONE ER [OxyCONTIN] 10 mg PO BID 11/25/18 [History] oxyCODONE HCl/Acetaminophen [Oxycodone-Acetaminophen 10-300] 1 tab PO Q4H PRN 10/08/20 [History] Past Medical History HEENT History: Reports: Impaired Vision Other HEENT History: wear glasses Cardiovascular History: Reports: Other (See Below) Other Cardiovascular History: SYNCOPE ETIOLOGY UNKNOWN, myocarditis 2016, fatty spot on Atrium, leaky heart valves Respiratory History: Reports: Asthma, Bronchitis, Recurrent Gastrointestinal History: Reports: Chronic Constipation, GERD, Irritable Bowel Syndrome Other Gastrointestinal History: LACTOSE INTOLERANCE Genitourinary History: Reports: Urinary Incontinence COMPTOMETRIST History: Reports: Endometriosis Other COMPTOMETRIST History: LMP ended This past Saturday Musculoskeletal History: Reports: Back Pain, Chronic, Fibromyalgia Other Musculoskeletal History: BUNION LEFT FOOT; TIETZE'S DISEASE; DDD THOR ACOLUMBAR; MYOFASCIAL PAIN; CHRONIC BACK PAIN; MUSCULE SPASM OF THE BACK; NECK PAIN HX OF TORTICOLLIS; 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 Thoracic outlet syndrom; had first ribs removed. CHRONIC FATIGUE SYNDROME Psychiatric History: Reports: Anxiety, Bipolar, Depression, Panic Attack Endocrine/Metabolic History: Reports: None Hematologic History: Reports: B12 Deficiency, Iron Deficiency Immunologic History: Reports: None Oncologic (Cancer) History: Reports: None Dermatologic History: Reports: Cellulitis - Infectious Disease History Infectious Disease History: Reports: None - Past Surgical History Head Surgeries/Procedures: Reports: None HEENT Surgical History: Reports: Oral Surgery Other HEENT Surgeries/Procedures: wisdom teeth removed in 2014 Cardiovascular Surgical History: Reports: Other (See Below) Other Cardiovascular Surgeries/Procedures: pulmonary function test. echocardiogram Respiratory Surgical History: Reports: None Other Respiratory Surgeries/Procedures: 1st ribs removed bilaterally GI Surgical History: Reports: Cholecystectomy, EGD Female Surgical History: Reports: Endometrial Ablation, Other (See Below) Other Female Surgeries/Procedures: Endometriosis ablation Jul 30 2018 Endocrine Surgical History: Reports: None Neurological Surgical History: Reports: Other (See Below) Other Neurological Surgeries/Procedures: INJECTION TO BACK Musculoskeletal Surgical History: Reports: Shoulder Surgery, Other (See Below) Other Musculoskeletal Surgeries/Procedures:: knee and foot surgery, 1 rib removed from right and left side to increase blood flow. left foot surgery, left great toe joint replacement Oncologic Surgical History: Reports: None Dermatological Surgical History: Reports: None Social & Family History - Family History Family Medical History: No Pertinent Family History HEENT: - Tobacco Use Tobacco Use Status *Q: Never Tobacco User - Caffeine Use Caffeine Use: Reports: None Other Caffeine Use: 1 cups a week Caffeine Use Comment: Intermittent coffee, not even every day. - Recreational Drug Use Recreational Drug Use: No - Living Situation & Occupation Living situation: Reports: with Family Review of Systems - Review of Systems Review Of Systems: Comprehensive ROS is negative, except as noted in HPI. ED EXAM, GENERAL - Physical Exam Exam: See Below Exam Limited By: No Limitations General Appearance: Alert, WD/WN, Moderate Distress Eye Exam: Bilateral Eye: EOMI, Normal Inspection, PERRL Ears: Normal External Exam, Normal Canal, Hearing Grossly Normal, Normal TMs Nose: Normal Inspection, Normal Mucosa, No Blood Throat/Mouth: Normal Inspection, Normal Lips, Normal Teeth, Normal Gums, Normal Oropharynx, Normal Voice, No Airway Compromise Head: Atraumatic, Normocephalic Neck: Normal Inspection, Supple, Non-Tender, Full Range of Motion Respiratory/Chest: No Respiratory Distress, Lungs Clear, Normal Breath Sounds, No Accessory Muscle Use, Chest Non-Tender Cardiovascular: Normal Peripheral Pulses, Regular Rate, Rhythm, No Edema, No Gallop, No JVD, No Murmur, No Rub GI/Abdominal: Normal Bowel Sounds, Soft, Non-Tender, No Organomegaly, No Distention, No Abnormal Bruit, No Mass (Female) Exam: Deferred Rectal (Female) Exam: Deferred Back Exam: Normal Inspection, Full Range of Motion, NT Extremities: Other (The dressing from the patient's surgical site was removed. The surgical site looks to be healing well with only minor bleeding for the proximal portion. There is only minor swelling to the area. CMS is intact. The dressing was replaced with care not to get the dressing too tight. ) Neurological: Alert, Oriented, CN II-XII Intact, Normal Cognition, Abnormal Gait (Due to recent surgery to left great toe) Psychiatric: Normal Affect, Normal Mood Skin Exam: Warm, Dry, Wound/Incision (to left great toe looks appropriate for 1 day post op.) Lymphatic: No Adenopathy Course - Vital Signs Last Recorded V/S: Last Vital Signs Temp 97.0 F 10/08/20 09:58 Pulse 88 10/08/20 09:58 Resp 18 10/08/20 09:58 BP 141/85 H 10/08/20 09:58 Pulse Ox 98 10/08/20 09:58 - Orders/Labs/Meds Orders: Active Orders 24 hr Category Date Time Status Morphine Med 10/08/20 11:17 Once 2 mg IVPUSH ONETIME ONE Medication Orders Morphine Sulfate (Morphine 2 Mg/Ml Syringe) 2 mg IVPUSH ONETIME ONE Stop: 10/08/20 11:18 Meds: Medications Generic Name Dose Route Start Last Admin Trade Name Freq PRN Reason Stop Dose Admin Morphine Sulfate 2 mg 10/08/20 11:17 Morphine 2 Mg/Ml Syringe IVPUSH 10/08/20 11:18 ONETIME ONE Discontinued Medications Generic Name Dose Route Start Last Admin Trade Name Freq PRN Reason Stop Dose Admin Morphine Sulfate 2 mg 10/08/20 10:19 10/08/20 10:23 Morphine 2 Mg/Ml Syringe IVPUSH 10/08/20 10:20 2 mg ONETIME ONE Administration Morphine Sulfate 2 mg 10/08/20 10:39 10/08/20 10:46 Morphine 2 Mg/Ml Syringe IVPUSH 10/08/20 10:40 2 mg ONETIME ONE Administration Ondansetron HCl 4 mg 10/08/20 10:39 10/08/20 10:45 Ondansetron 4 Mg/2 Ml Sdv IVPUSH 10/08/20 10:40 4 mg ONETIME ONE Administration - Re-Assessments/Exams Free Text/Narrative Re-Assessment/Exam: 10/08/20 10:40 The patient reports her pain went from a 10/10 before initial dose of Morphine to a 9/10 after. The patient also reported some nausea. Departure - Departure Time of Disposition: 11:18 Disposition: Home, Self-Care 01 Condition: Fair Clinical Impression: Acute postoperative pain of left foot - Discharge Information *PRESCRIPTION DRUG MONITORING PROGRAM REVIEWED*: Not Applicable *COPY OF PRESCRIPTION DRUG MONITORING REPORT IN PATIENT TRACE: Not Applicable Forms: ED Department Discharge Care Plan Goals: The patient and her mother were advised of the examination results during the visit. The surgical site looks appropriate for 1 day post operation. The dressing to the surgical site was replaced. The patient was given IV pain medications for symptom control. The patient was encouraged to avoid walking on the surgical foot over the next 24-48 hours. The patient was advised to rest, ice and elevate the extremity. The patient may take medications as prescribed. If the patient has any additional symptoms or concerns, the patient should either return to the emergency department, visit her primary care facility or contact her surgeon. Sepsis Event Note (ED) - Evaluation Sepsis Screening Result: No Definite Risk - Focused Exam Vital Signs: Vital Signs Temp Pulse Resp BP Pulse Ox 10/08/20 09:58 97.0 F 88 18 141/85 H 98 - My Orders Last 24 Hours: My Active Orders 10/08/20 11:17 Morphine 2 mg IVPUSH ONETIME ONE - Assessment/Plan Last 24 Hours: My Active Orders 10/08/20 11:17 Morphine 2 mg IVPUSH ONETIME ONE
[2020-10-08] MEDS ORDERED: Ondansetron 4 MG/2 ML SDV IVPUSH ONE (10:39)
== END 2020-10-08 11:30 | disposition home or self-care (01) ==
LOC: DL.ED 09:40
DX: G89.18 Other acute postprocedural pain (principal); M79.672 Pain in left foot; Z88.5 Allergy status to narcotic agent; Z91.048 Other nonmedicinal substance allergy status
CPT/HCPCS: 96374; 96375; 96376; 99283; J2270; J2405